=== PATIENT | female | born 2005 | race Caucasian/White ===

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

== ENCOUNTER → 2025-04-06 16:23 | Outpatient (CLI) | payer SELFPAY | LOC: LAB 16:24 | PROVIDERS: PCP Pediatrics; Visit Provider Nurse Practitioner Family | DX: R30.0 Dysuria (principal) | CPT/HCPCS: 87077; 87086; 87186 ==

== ENCOUNTER 2025-05-09 17:46 | Emergency (ER) | payer SELFPAY ==
[2025-05-09 18:33] VITALS: BP 134/82; PULSE 82; RESP 16; TEMP 36.9; O2SAT 98; BMI 42.4
[2025-05-09 19:14] LABS: Add Manual Diff / Slide Review NO; Basophils Absolute Auto 100 /uL (0-100); Basophils Percent Auto 0.6 % (0-2); Eosinophils Absolute Auto 200 /uL (0-450); Eosinophils Percent Auto 1.6 % (2-4); Hematocrit 35.9 % (36-46); Hemoglobin 12.3 g/dL (12.0-16.0); Lymphocytes Absolute Auto 3900 /uL (1100-4500); Lymphocytes Percent Auto 28.3 % (25-40); Mean Corpuscular HGB Conc 34.4 % (30-36); Mean Corpuscular Hemoglobin 31.2 PG (26-34); Mean Corpuscular Volume 90.8 fL (80-100); Monocytes Absolute Auto 1100 /uL (0-900); Monocytes Percent Auto 7.9 % (3-14); Neutrophils Absolute Auto 8500 /uL (1500-7000); Neutrophils Percent Auto 61.6 % (50-75); Platelet Count 372 X10^3/uL (150-400); Red Blood Cell Count 3.95 X10^6/uL (4.0-5.2); Red Cell Distribution Width 12.2 % (11.6-14.8); White Blood Cell Count 13.8 X10^3/uL (4.5-11.0)
[2025-05-09 19:19] LABS: INR 1.1 (0.9-1.3); Prothrombin Time 12.3 SECONDS (9.4-12.5)
[2025-05-09 19:21] LABS: PTT Partial Thromboplastin Tim 37 SECONDS (25.1-36.5)
[2025-05-09 19:23] LABS: Alanine Aminotransferase 22 IU/L (<35); Albumin 4.4 g/dL (3.5-5.0); Albumin Globulin Ratio 1.4 (1.0-2.8); Alkaline Phosphatase 74 U/L (38-126); Aspartate Aminotransferase 27 IU/L (14-36); BUN Creatinine Ratio 14.8 (6-22); Bilirubin Total 0.4 mg/dL (0.2-1.3); Blood Urea Nitrogen 9 mg/dL (7-17); Calcium 9.2 mg/dL (8.4-10.2); Carbon Dioxide 26 mmol/L (22-32); Chloride 103 mmol/L (98-107); Estimated Glomerular Filt Rate > 60 mL/min (>60); Globulin 3.1 g/dL (1.7-4.1); Glucose 105 mg/dL (70-99); HEMOLYSIS < 15 (0-50); Potassium 3.9 mmol/L (3.4-5.1); Sodium 138 mmol/L (137-145); Total Protein 7.5 g/dL (6.3-8.2)
[2025-05-09 20:38] LABS: Bacteria Urine Moderate (10-30); Culture Indicated Urine Cult Not Indicated; RBC Urine 0-1/HPF (0-5/HPF); Squamous Epithelial Cell Urine 1-5 /HPF (0-5/HPF); Urine Volume 10mL (spun); WBC Urine 0-1/HPF (0-5/HPF)
[2025-05-09 22:43] VITALS: O2SAT 100
[2025-05-09 22:44] VITALS: BP 125/74; PULSE 91; O2SAT 100
--- NOTE | 2025-05-09 23:39 | ED.GIBLEED ---
HPI - GI Bleed General Chief complaint: GI Bleed Stated complaint: bleeding rectum cramping hot and cold Time Seen by Provider: 05/09/25 20:22 Source: patient Mode of arrival: Ambulatory Related Data Previous Rx's ?Medication ?Instructions ?Recorded cefdinir 300 mg capsule 300 mg PO BID #10 caps 04/06/25 Allergies Allergy/AdvReac Type Severity Reaction Status Date / Time No Known Drug Allergies Allergy Verified 05/09/25 18:32 Patient History Social History Smoking Status: Never smoker Smoking Status: Never smoker tobacco type: cigarettes alcohol intake frequency: other Exam Initial Vital Signs Initial Vital Signs: Vital Signs Temperature 98.5 F 05/09/25 18:33 Pulse Rate 82 05/09/25 18:33 Respiratory Rate 16 05/09/25 18:33 Blood Pressure 134/82 05/09/25 18:33 Pulse Oximetry 98 05/09/25 18:33 Oxygen Delivery Method Room Air 05/09/25 18:33 Course Orders Ordered: ED Orders 05/09/25 18:41 Type and Screen Stat 05/09/25 19:00 Complete Blood Count AUTO DIFF Stat Comprehensive Metabolic Panel Stat PTT Partial Thromboplastin [place] Stat Prothrombin Time INR Stat 05/09/25 20:10 Urine Microscopic Stat 05/10/25 00:21 CT abdomen pelvis w con Stat Ondansetron HCl (Ondansetron 4 Mg/2 Ml Inj) 4 mg IV NOW PRN PRN Reason: Nausea And Vomiting Ondansetron HCl (Ondansetron 4 Mg Odt) 4 mg PO NOW PRN PRN Reason: Nausea And Vomiting Vital Signs Vital signs: Vital Signs - 8 hr 05/09/25 18:33 05/09/25 22:43 05/09/25 22:44 Temperature 98.5 F Pulse Rate 82 Respiratory Rate 16 Blood Pressure 134/82 125/74 Pulse Oximetry 98 100 Oxygen Delivery Method Room Air 05/09/25 22:44 05/10/25 00:43 05/10/25 00:44 Temperature Pulse Rate 91 H 67 Respiratory Rate 27 H Blood Pressure 132/77 Pulse Oximetry 100 97 Oxygen Delivery Method 05/10/25 00:44 Temperature Pulse Rate 74 Respiratory Rate 25 H Blood Pressure Pulse Oximetry 100 Oxygen Delivery Method Room Air MDM - GI Bleed Lab Data 05/09/25 19:00 05/09/25 19:00 Labs: Lab Results 05/09/25 05/09/25 Range/Units 19:00 20:10 WBC 13.8 H (4.5-11.0) X10^3/uL RBC 3.95 L (4.0-5.2) X10^6/uL Hgb 12.3 (12.0-16.0) g/dL Hct 35.9 L (36-46) % MCV 90.8 (80-100) fL MCH 31.2 (26-34) PG MCHC 34.4 (30-36) % RDW 12.2 (11.6-14.8) % Plt Count 372 (150-400) X10^3/uL Neut % (Auto) 61.6 (50-75) % Lymph % (Auto) 28.3 (25-40) % [place] % (Auto) 7.9 (3-14) % Eos % (Auto) 1.6 L (2-4) % Baso % (Auto) 0.6 (0-2) % Neut # (Auto) 8500 H (5793-8856) /uL Lymph # (Auto) 3900 (8543-2758) /uL [place] # (Auto) 1100 H (0-900) /uL Eos # (Auto) 200 (0-450) /uL Baso # (Auto) 100 (0-100) /uL PT 12.3 (9.4-12.5) SECONDS INR 1.1 (0.9-1.3) APTT 37 H (25.1-36.5) SECONDS Sodium 138 (137-145) mmol/L Potassium 3.9 (3.4-5.1) mmol/L Chloride 103 (98-107) mmol/L Carbon Dioxide 26 (22-32) mmol/L BUN 9 (7-17) mg/dL Creatinine 0.61 (0.52-1.04) mg/dL Estimated GFR > 60 (>60) mL/min BUN/Creatinine Ratio 14.8 (6-22) Glucose 105 H (70-99) mg/dL Calcium 9.2 (8.4-10.2) mg/dL Total Bilirubin 0.4 (0.2-1.3) mg/dL AST 27 (14-36) IU/L ALT 22 (<35) IU/L Alkaline Phosphatase 74 (38-126) U/L Total Protein 7.5 (6.3-8.2) g/dL Albumin 4.4 (3.5-5.0) g/dL Globulin 3.1 (1.7-4.1) g/dL Albumin/Globulin Ratio 1.4 (1.0-2.8) Urine RBC 0-1/hpf (0-5/HPF) Urine WBC 0-1/hpf (0-5/HPF) Ur Squamous Epith Cells 1-5 /hpf (0-5/HPF) Urine Bacteria Moderate (10-30) H (None) Ur Culture Indicated? Cult not indicated Vol Urine Centrifuged 10ml (spun) Point of Care Testing Test Results Negative Urine Dip Bedside Urine Glucose Negative Bedside Urine Bilirubin - Negative Bedside Urine Ketone - Negative Urine Specific [place] 1.010 Bedside Urine Occult Blood + Bedside Urine pH 6.5 Bedside Urine Protein - Negative Bedside Urine Urobilinogen +/- 1mg Bedside Urine Nitrite - Negative Bedside Urine Leukocytes - Negative Esterase Imaging Data CT scan - abdomen/pelvis: Radiologist's Impression: PROCEDURE: CT ABDOMEN PELVIS W CON INDICATIONS: low abd pain and rectal bleeding TECHNIQUE: After the administration of intravenous contrast, axial sections acquired from the lung bases to the pubic symphysis. Coronal and sagittal reformats were performed. For radiation dose reduction, the following was used: automated exposure control, adjustment of mA and/or kV according to patient size. COMPARISON: None. FINDINGS: Image quality: Diagnostic. Lower Chest: No significant findings. ABDOMEN: Liver: No solid mass. Gallbladder: No radiopaque gallstones or wall thickening. Biliary ducts: No biliary dilation. Pancreas: No ductal dilation. Spleen: Size is within normal limits. Adrenal Glands: No adrenal nodules. Kidneys and Ureters: No hydronephrosis. No solid mass. No complex renal cystic lesion which requires follow up. Stomach and Bowel: The stomach is within normal limits. Small bowel loops are normal caliber. Some pelvic small bowel loops contain fluid. The terminal ileum is decompressed. No focal inflammation. A normal appendix is present. Normal colon without wall thickening or diverticulosis. No pericolonic inflammation. Peritoneum: Trace free fluid in the pelvis. No free air or focal fluid collection. Ventral Wall: No significant ventral hernia. Abdominal Nodes: Numerous diffuse borderline prominent mesenteric lymph nodes. No pathologic retroperitoneal adenopathy. Vessels: The abdominal aorta, IVC, and portal vein are of normal caliber. PELVIS: Pelvic Organs: Anteverted uterus contains an IUD in expected position. CT appearance ovarian tissue is within normal limits. There is a left ovarian corpus luteum. Bladder: No bladder wall thickening, accounting for underdistention. Pelvic Nodes: No enlarged lymph nodes. Miscellaneous: No inguinal hernias are seen. Bones: No aggressive osseous abnormality. IMPRESSION: No acute abnormalities. Borderline mesenteric adenopathy is nonspecific and can be physiologic in this age group, or reactive. Left ovarian corpus luteum cyst. Trace, probably physiologic free fluid in the pelvis. Dictated by: Lisa Spears M.D. on 05/10/2025 at 1:14 Discharge Plan Departure Patient Disposition: Home Clinical Impression: Bright red rectal bleeding, Alternating constipation and diarrhea Hemorrhoids Qualifiers: Hemorrhoid type: unspecified Qualified Code(s): K64.9 - Unspecified hemorrhoids Instructions: DI for Hemorrhoids Activity Restrictions/Additional Instructions: Thank you for coming in The painless bright red blood from your bottom seems to be coming from internal hemorrhoids. There was no evidence for infection, a rectal fissure, other GI bleeding that would require further workup or hospitalization. Your blood work was quite reassuring. We did do a CT scan that did not suggest any abnormalities consistent with inflammatory bowel disease, such as Crohn's disease or ulcerative colitis With your episodes of intermittent constipation and diarrhea, I would encourage you to add as much fiber in your regular diet as is possible and if you are still not able to have regular soft bowel movements than adding fiber supplement. If you find that you are constipated I would recommend enough MiraLax to have a soft bowel movement. Fiber is the great equalizer, it makes hard stool soft and soft stool harder. Fiber is also food for all of the millions of healthy bacteria in your gut that keep your gut healthy If you find that you are getting worse or develop any new symptoms, please feel free to return to the emergency department for further evaluation. Prescriptions: No Action cefdinir 300 mg capsule 300 mg PO BID Qty: 10 0RF Referrals: Akosua Mckay MD [Primary Care Provider, Pediatrics] Stand Alone Forms: Patient Portal/API
--- NOTE | 2025-05-10 00:21 | DI.CT.S_ITS ---
PROCEDURE: CT ABDOMEN PELVIS W CON INDICATIONS: low abd pain and rectal bleeding TECHNIQUE: After the administration of intravenous contrast, axial sections acquired from the lung bases to the pubic symphysis. Coronal and sagittal reformats were performed. For radiation dose reduction, the following was used: automated exposure control, adjustment of mA and/or kV according to patient size. COMPARISON: None. FINDINGS: Image quality: Diagnostic. Lower Chest: No significant findings. ABDOMEN: Liver: No solid mass. Gallbladder: No radiopaque gallstones or wall thickening. Biliary ducts: No biliary dilation. Pancreas: No ductal dilation. Spleen: Size is within normal limits. Adrenal Glands: No adrenal nodules. Kidneys and Ureters: No hydronephrosis. No solid mass. No complex renal cystic lesion which requires follow up. Stomach and Bowel: The stomach is within normal limits. Small bowel loops are normal caliber. Some pelvic small bowel loops contain fluid. The terminal ileum is decompressed. No focal inflammation. A normal appendix is present. Normal colon without wall thickening or diverticulosis. No pericolonic inflammation. Peritoneum: Trace free fluid in the pelvis. No free air or focal fluid collection. Ventral Wall: No significant ventral hernia. Abdominal Nodes: Numerous diffuse borderline prominent mesenteric lymph nodes. No pathologic retroperitoneal adenopathy. Vessels: The abdominal aorta, IVC, and portal vein are of normal caliber. PELVIS: Pelvic Organs: Anteverted uterus contains an IUD in expected position. CT appearance ovarian tissue is within normal limits. There is a left ovarian corpus luteum. Bladder: No bladder wall thickening, accounting for underdistention. Pelvic Nodes: No enlarged lymph nodes. Miscellaneous: No inguinal hernias are seen. Bones: No aggressive osseous abnormality. IMPRESSION: No acute abnormalities. Borderline mesenteric adenopathy is nonspecific and can be physiologic in this age group, or reactive. Left ovarian corpus luteum cyst. Trace, probably physiologic free fluid in the pelvis. Dictated by: Lisa Spears M.D. on 05/10/2025 at 1:14 Approved by: Lisa Spears M.D. on 05/10/2025 at 1:21
--- NOTE | 2025-05-10 00:26 | PC.NURSE ---
Pt to imaging via ED stretcher with dental tech
[2025-05-10 00:43] VITALS: PULSE 67; RESP 27; O2SAT 97
[2025-05-10 00:44] VITALS: BP 132/77; PULSE 74; RESP 25; O2SAT 100
[2025-05-10 01:00] VITALS: BP 121/68; PULSE 70; RESP 19; O2SAT 99
[2025-05-10 01:30] VITALS: BP 120/58; PULSE 81; RESP 19; O2SAT 99
[2025-05-10 02:00] VITALS: BP 119/59; PULSE 69; RESP 15; O2SAT 99
[2025-05-10 02:30] VITALS: BP 122/79; PULSE 76; RESP 33; O2SAT 99
== END 2025-05-10 02:52 | disposition home or self-care (01) ==
PROVIDERS: Emergency Provider Emergency Medicine; PCP Pediatrics
DX: K62.5 Hemorrhage of anus and rectum (principal); K64.9 Unspecified hemorrhoids; K59.00 Constipation, unspecified; R19.7 Diarrhea, unspecified
CPT/HCPCS: 36415; 74177; 80053; 81003; 81015; 81025; 85025; 85610; 85730; 99283; 99284; Q9967

== ENCOUNTER → 2025-05-25 18:01 | Outpatient (CLI) | payer SELFPAY | PROVIDERS: PCP Pediatrics; Visit Provider Nurse Practitioner Family | DX: R30.0 Dysuria (principal); N94.89 Other specified conditions associated with female genital organs and menstrual cycle | CPT/HCPCS: 87077; 87086; 87147; 87210 ==

== ENCOUNTER 2025-06-30 19:16 | Emergency (ER) | payer OTHER, SELFPAY ==
[2025-06-30 19:35] VITALS: BP 170/80; PULSE 116; RESP 17; TEMP 36.8; O2SAT 98; BMI 43.2
[2025-06-30 19:57] LABS: Strep Grp A by PCR Rapid Negative (Negative)
[2025-06-30 20:33] LABS: Influenza A - CEPHEID Flu A NEGATIVE (NEGATIVE); Influenza B - CEPHEID Flu B NEGATIVE (NEGATIVE)
[2025-06-30 20:35] LABS: COVID-19 CEPHEID 4-PLEX PCR Negative (Negative)
[2025-06-30 22:03] VITALS: BP 121/79; PULSE 112; RESP 20; TEMP 38.2; O2SAT 100
[2025-06-30 22:08] VITALS: TEMP 38.2
[2025-06-30] MEDS: ACETAMINOPHEN 325 MG TABLET 975 MG PO (22:08)
[2025-06-30] MEDS: IBUPROFEN 400 MG TABLET 800 MG PO (22:08)
--- NOTE | 2025-06-30 22:39 | ED.GENADULT ---
HPI - General Adult General Chief complaint: Upper Respiratory Symptoms Stated complaint: throat swelling, clogged ears, hot &cold sweats Time Seen by Provider: 06/30/25 22:23 Source: patient Mode of arrival: Ambulatory History of Present Illness HPI narrative: 20-year-old female complains of sore throat, ear discomfort, some chills, little bit feverish. Some nausea without emesis. Denies abdominal pain. Denies cough chest pain shortness of breath. Not currently on any oral antibiotics. Related Data Home Medications ?Medication ?Instructions ?Recorded ?Confirmed No Known Home Medications 05/25/25 05/25/25 Previous Rx's ?Medication ?Instructions ?Recorded phenazopyridine 200 mg tablet 200 mg PO TID 6 doses #6 tabs 05/25/25 (Pyridium) Allergies Allergy/AdvReac Type Severity Reaction Status Date / Time No Known Drug Allergies Allergy Verified 06/30/25 19:35 Patient History Social History Smoking Status: Former smoker Smoking Status: Former smoker tobacco type: cigarettes alcohol intake frequency: other Exam Narrative Exam Narrative: GENERAL: Well-developed patient, in mild distress. HEAD: Atraumatic. Normocephalic. EYES: Pupils equal round and reactive. Extraocular motions intact. No scleral icterus. No injection or drainage. ENT: Nose without bleeding, purulent drainage. Throat with some erythema but no exudate. NECK: Trachea midline. Moving neck well, no anterior lymphadenopathy. CARDIOVASCULAR: Regular rate and rhythm without murmurs, gallops, or rubs. RESPIRATORY: Clear to auscultation. Breath sounds equal bilaterally. No wheezes, rales, or rhonchi. GASTROINTESTINAL: Abdomen soft, non-tender, nondistended. EXTREMITIES: No edema or joint tenderness. BACK: Nontender without deformity or crepitance. No flank tenderness. NEURO: AOx3. Motor functions grossly nonfocal. SKIN: No rash or erythema of visible areas Initial Vital Signs Initial Vital Signs: Vital Signs Temperature 98.2 F 06/30/25 19:35 Pulse Rate 116 H 06/30/25 19:35 Respiratory Rate 17 06/30/25 19:35 Blood Pressure 170/80 H 06/30/25 19:35 Pulse Oximetry 98 06/30/25 19:35 Oxygen Delivery Method Room Air 06/30/25 19:35 Course Orders Ordered: ED Orders 06/30/25 19:30 Covid-19 + FLU A/B + RSV - PCR Stat Strep Grp A by PCR Rapid Stat Throat Culture Stat Discontinued Medications Acetaminophen (Acetaminophen 325 Mg Tablet) 975 mg PO NOW ONE Stop: 06/30/25 22:05 Last Admin: 06/30/25 22:08 Dose: 975 mg Documented By: PONCE Ibuprofen (Ibuprofen 400 Mg Tablet) 800 mg PO NOW ONE Stop: 06/30/25 22:05 Last Admin: 06/30/25 22:08 Dose: 800 mg Documented By: PONCE Vital Signs Vital signs: Vital Signs - 8 hr 06/30/25 19:35 06/30/25 22:03 06/30/25 22:08 Temperature 98.2 F 100.8 F H 100.8 F H Pulse Rate 116 H 112 H Respiratory Rate 17 20 Blood Pressure 170/80 H 121/79 Pulse Oximetry 98 100 Oxygen Delivery Method Room Air Room Air 06/30/25 22:08 06/30/25 22:51 Temperature 100.8 F H 100.1 F H Pulse Rate 111 H Respiratory Rate 20 Blood Pressure 126/76 Pulse Oximetry 97 Oxygen Delivery Method Room Air Medical Decision Making Lab Data Labs: Lab Results 06/30/25 Range/Units 19:30 SARS-CoV-2 (PCR) Negative (Negative) Influenza A (RT-PCR) Flu a negative (NEGATIVE) Influenza B (RT-PCR) Flu b negative (NEGATIVE) RSV (PCR) Negative (Negative) Group A Strep (PCR) Negative (Negative) MDM Narrative Medical decision making narrative: 20-year-old female with sore throat, feels feverish, afebrile, sirs screen negative. COVID flu RSV swab negative. Rapid strep screen negative. Moves neck well, handle secretions well, no lymphadenopathy obvious on examination. Trial of symptomatic treatment for now, likely viral pharyngitis/illness. Tylenol as needed. Encouraged oral fluids. Discharged home with family. Discharge Plan Departure Patient Disposition: Home Clinical Impression: Pharyngitis Activity Restrictions/Additional Instructions: Sore throat pain with some redness but no exudates. Strep screen was negative. Swab for COVID influenza RSV viruses were negative. Likely viral pharyngitis by history and examination on lab data available at this time. Take Tylenol as needed for fever. You had some complaint of nausea, stated that you had ondansetron to use at home, to take if needed for control of nausea symptoms. Recheck if not improving in the next couple of days. Return earlier to this/nearest emergency department for any change worsening symptoms or any concerns prior. Prescriptions: No Action phenazopyridine [Pyridium] 200 mg tablet 200 mg PO TID 0 Days Qty: 6 0RF No Known Home Medications Referrals: Akosua Mckay MD [Primary Care Provider, Pediatrics] Stand Alone Forms: Patient Portal/API
[2025-06-30 22:51] VITALS: BP 126/76; PULSE 111; RESP 20; TEMP 37.8; O2SAT 97
== END 2025-06-30 22:53 | disposition home or self-care (01) ==
PROVIDERS: Emergency Provider Emergency Medicine; PCP Pediatrics
DX: J02.9 Acute pharyngitis, unspecified (principal); R50.9 Fever, unspecified
CPT/HCPCS: 87070; 87077; 87147; 87637; 87651; 99283